=== PATIENT | male | born 1995 | race Caucasian/White ===

== ENCOUNTER 2017-05-07 09:51 | Inpatient (IN) | payer MEDICAID ==
[2017-05-07] VITALS (27 sets, daily range): BP systolic 84–115; BP diastolic 41–68; BMI 17.2
[~2017-05-07] VITALS: Ht 177.8 cm; Wt 54.4 kg
[2017-05-07 10:28] LABS: APPEARANCE CLEAR (CLEAR); COLOR STRAW (YELLOW); NITRITE NEGATIVE (NEGATIVE); PROTEIN 1+ mg/dL (NEGATIVE); SPECIFIC GRAVITY 1.015 (1.005-1.020)
[2017-05-07 10:29] LABS: BACTERIA FEW /hpf (NONE SEEN); BILIRUBIN NEGATIVE (NEGATIVE); EPITHELIAL CELLS RARE /hpf (0-5); GLUCOSE 1000 mg/dL (NEGATIVE); GRANULAR CAST 0-5 /lpf (NONE SEEN); KETONE LARGE mg/dL (NEGATIVE); MUCUS <1+ /lpf (NONE SEEN); RED CELLS - URINE RARE /hpf (0-5); UROBILINOGEN NORMAL (NORMAL); WHITE CELLS - URINE RARE /hpf (0-5)
[2017-05-07 10:35] LABS: KETONE - SERUM MODERATE mg/dL (NEGATIVE)
[2017-05-07 10:47] LABS: BASOPHILS 0.6 % (0-2); EOSINOPHILS 0 % (0-7); HEMATOCRIT 34.9 % (42.0-54.0); HEMOGLOBIN 12.7 g/dL (13.5-17.5); IMMATURE GRANULOCYTES 1.1 % (0-5); MCH 32.2 pg (26.0-34.0); MCHC 36.4 g/dL (31.0-37.0); MCV 88.4 fL (80.0-100.0); MEAN PLATELET VOLUME 10.6 fL (7.4-10.4); NEUTROPHILS 78.3 % (40-80); PLATELET COUNT 391 10x3/uL (130-400); RBC 3.95 10x6/uL (4.20-6.10); RDW 15.8 % (11.5-14.5); WBC 12.4 10x3/uL (4.8-10.8)
[2017-05-07 10:55] LABS: UDS - AMPHET NEGATIVE QUAL (NEGATIVE); UDS - BARB NEGATIVE QUAL (NEGATIVE); UDS - BENZO NEGATIVE QUAL (NEGATIVE); UDS - COCAINE NEGATIVE QUAL (NEGATIVE); UDS - OPIATE NEGATIVE QUAL (NEGATIVE); UDS - PCP NEGATIVE QUAL (NEGATIVE); UDS - THC NEGATIVE QUAL (NEGATIVE)
[2017-05-07 11:21] LABS: UREA NITROGEN 17 mg/dL (7-18)
[2017-05-07 11:22] LABS: CALC OSMOLALITY 304 mosm/kg (275-300); SODIUM 139 mmol/L (136-145); eGFR NON AFRICAN AMERICAN > 90 mL/min (90-120)
[2017-05-07 11:23] LABS: CHLORIDE - SERUM 103 mmol/L (98-107); POTASSIUM - SERUM 3.1 mmol/L (3.5-5.1)
[2017-05-07 11:24] LABS: CALCIUM 7.6 mg/dL (8.5-10.1)
[2017-05-07 11:25] LABS: ALT (SGPT) 19 U/L (10-68)
[2017-05-07 11:26] LABS: ALBUMIN 3.4 g/dL (3.4-5.0); ALKALINE PHOSPHATASE 244 U/L (46-116); BILIRUBIN - TOTAL 0.69 mg/dL (0.2-1.3)
[2017-05-07 11:27] LABS: CREATINE KINASE 37 UL (21-232)
[2017-05-07 11:28] LABS: MAGNESIUM - SERUM 2.3 mg/dL (1.8-2.4)
[2017-05-07 11:29] LABS: GLUCOSE 546 mg/dL (74-106)
--- NOTE | 2017-05-07 15:24 | NUR ---
1515 PT IS RECIEVED [facility] ER VIA STRECHER REPORT RECIEVED PT IS LETHARGIC BUT APPROPRIATE IN RESPONSES AND ANSWERS QUESTIONS..THERE IS A PIV IN THE LEFT FOREARM NO REDNESS OR SWELLING THERE IS LR AT 100CC/HR INFUSING WITH INSULIN 100UNITS IN 100CC NS INFUSING AT 5 UNITS /HR... INITIAL BS ON ARRIVAL IS 371... MAURICIO CATH WITH YELLOW URINE AND SR ON MONITOR.. TEMP PER RECTUM IS 88 AND A BEAHR HUGGER IS PLACED ON PT AT THIS TIME.. PT C/O PAIN IN LEFT SIDE AN ACHE THAT UNCHNAGED BY PALPATION..
[2017-05-07 16:44] LABS: KETONE - SERUM LARGE mg/dL (NEGATIVE)
[2017-05-07 16:47] LABS: CALCIUM 7.9 mg/dL (8.5-10.1); CHLORIDE - SERUM 105 mmol/L (98-107); CREATININE - SERUM 1.1 mg/dL (0.6-1.3); SODIUM 137 mmol/L (136-145); UREA NITROGEN 17 mg/dL (7-18); eGFR NON AFRICAN AMERICAN > 90 mL/min (90-120)
[2017-05-07 16:49] LABS: CALC OSMOLALITY 288 mosm/kg (275-300); GLUCOSE 334 mg/dL (74-106)
[2017-05-07 16:59] LABS: CARBON DIOXIDE 3.7 mmol/L (21.0-32.0); POTASSIUM - SERUM 2.3 mmol/L (3.5-5.1)
--- NOTE | 2017-05-07 17:08 | NUR ---
1700 PT LAB DRAWN AND KETONES LARGE DKA INSULIN DRIP CONTINUES AND RATE INCREASED PER DKA MULTIPLIER.. POTASIUM IS 2.3 AND KCL PO ORDERED.. TEMP IS UP TO 92.8 PER RECTUM..
--- NOTE | 2017-05-07 17:13 | NUR ---
1700 FSBS WITH INSULIN ADJUSTMENT PER DKA PROTOCOL PT BP IS 84SYS MAP IS [address] FREEMAN IS BEEPED AT THIS TIME.. 1720 DR FREEMAN HAS NOT RETURNED CALL OFFICE CALLED
--- NOTE | 2017-05-07 17:26 | NUR ---
8466 DR FREEMAN CALLED BACK AND UPDATE IS GIVEN ORDERS RECIEVED..
--- NOTE | 2017-05-07 18:02 | NUR ---
1800 INSULIN TITRATED.. PIV INITIATED IN RIGHT AC WITH 22 GA FOR LEVOPHED INFUSION.. LEVOPHED INITIATED AT 1 MCG TEMP 94.5 PER RECTAL REMAINS WITH THE WARMING BLANKET
--- NOTE | 2017-05-07 19:29 | NUR ---
REPORT RECIEVED, SHIFT ASSESSMENT COMPLETE, PT IS ALET AND ORIENTED, ON RA WITH 98% O2 SAT. LUNGS CLEAR IN ALL LOBES, S1S2, CM-ST, PATENT LEFT HAND/RIGHT A/C PIV....SEE IF FLOW SHEET...ABODMEN IS FLAT WITH ACTIVE BS, PATENT F/C WITH YELLOW UOP, NO EDEMA NOTED, ALL PPP, VSS, CALL LIGHT IN REACH
[2017-05-07 20:25] LABS: KETONE - SERUM NEGATIVE (NEGATIVE)
[2017-05-07 20:27] LABS: ALBUMIN 3.3 g/dL (3.4-5.0); ALKALINE PHOSPHATASE 226 U/L (46-116); CALCIUM 8.8 mg/dL (8.5-10.1); CHLORIDE - SERUM 106 mmol/L (98-107); PROTEIN - SERUM 7.1 g/dL (6.4-8.2); SODIUM 139 mmol/L (136-145); UREA NITROGEN 18 mg/dL (7-18); eGFR NON AFRICAN AMERICAN > 90 mL/min (90-120)
[2017-05-07 20:57] LABS: CALC OSMOLALITY 283 mosm/kg (275-300); GLUCOSE 178 mg/dL (74-106)
[2017-05-07 20:58] LABS: ALT (SGPT) 13 U/L (10-68); CARBON DIOXIDE 5.1 mmol/L (21.0-32.0); POTASSIUM - SERUM 2.2 mmol/L (3.5-5.1)
--- NOTE | 2017-05-07 23:20 | NUR ---
REASSESSMENT COMPLETE, NO CHANGES NOTED, PT UPTO BSC LG FORMED BM AT THIS TIME, NO OTHER NEEDS NOTED, WILL CON'T TO MONITOR
[2017-05-07] MEDS ORDERED: LEVEMIR100 U/M1 SC (23:45)
[2017-05-08] VITALS (20 sets, daily range): BP systolic 94–127; BP diastolic 52–90; Ht 177.8 cm; Wt 54.4 kg
--- NOTE | 2017-05-08 01:00 | NUR ---
PT UP TO BSC, SM BM AT THIS,
--- NOTE | 2017-05-08 03:05 | NUR ---
REASSESSMENT COMPLETE, NO CHANGES NOTED, PT RESTING AT THIS TIME, NO NEEDS NOTED, VSS, CALL LIGHT IN REACH
[2017-05-08 04:40] LABS: BASOPHILS 0.1 % (0-2); EOSINOPHILS 0 % (0-7); HEMOGLOBIN 11.8 g/dL (13.5-17.5); IMMATURE GRANULOCYTES 0.5 % (0-5); LYMPHOCYTES 7.5 % (15-50); MCH 31.9 pg (26.0-34.0); MCHC 38.1 g/dL (31.0-37.0); MEAN PLATELET VOLUME 10.5 fL (7.4-10.4); MONOCYTES 7.3 % (2-11); NEUTROPHILS 84.6 % (40-80)
[2017-05-08 04:57] LABS: MCV 83.8 fL (80.0-100.0); PLATELET COUNT 243 10x3/uL (130-400); WBC 7.9 10x3/uL (4.8-10.8)
[2017-05-08 05:03] LABS: ALBUMIN 3.3 g/dL (3.4-5.0); ALKALINE PHOSPHATASE 212 U/L (46-116); ALT (SGPT) 15 U/L (10-68); CALC OSMOLALITY 275 mosm/kg (275-300); CALCIUM 8.2 mg/dL (8.5-10.1); CHLORIDE - SERUM 104 mmol/L (98-107); CHOL - HDL RATIO 6.2 ratio (2.3-4.9); CHOLESTEROL, TOTAL 237 mg/dL (0-200); GLUCOSE 219 mg/dL (74-106); HDL CHOLESTEROL 38 mg/dL (32-96); PROTEIN - SERUM 6.9 g/dL (6.4-8.2); SODIUM 134 mmol/L (136-145); UREA NITROGEN 15 mg/dL (7-18); eGFR NON AFRICAN AMERICAN > 90 mL/min (90-120)
[2017-05-08 05:07] LABS: MAGNESIUM - SERUM 1.9 mg/dL (1.8-2.4); TRIGLYCERIDE 588 mg/dL (30-200)
[2017-05-08 05:09] LABS: CARBON DIOXIDE 6.6 mmol/L (21.0-32.0); POTASSIUM - SERUM 2.8 mmol/L (3.5-5.1)
[2017-05-08 05:18] LABS: HEMOGLOBIN A1C 12.7 % (4.8-6.0)
--- NOTE | 2017-05-08 07:25 | NUR ---
PT RESTING COMFORTABLY. ALERT AND ORIENDTED. SPEACH IS CLEAR. ON ROOM AIR WITH O2 SAT 98%, AXILLARY TEMP 97.6. ON TELEMETY HR 113 SINUS TACHYCARDIA. RR 21. LUNGS CLEAR THROUG OUT. BS ACTIVE X 4 QUADRANTS. PT REPORTS PAIN 6/10 ON RIGHT UPPER QUADRANT. PIV ON LEFT HAND WITH NS AT 125ML/HR, SODIUM PHOSPHATE AT 62.5ML/HR. KCL RIDERS AT 50ML/HR. PATIENT ABLE TO GET UP TO BEDSIDE COMODE AND USES URINAL. 1700ML OF LIGHT YELLOW URINE NOTED. HEALING WOUND NOTED ON RIGHT BUTTOCKS. PERIPHERAL PULSES ARE PALPABLE. MOUTH IS SLIGHTLY DRY. PT REPORTS WEARING GLASSES BUT IS NOT WEARING THEM AT THIS TIME. HAS POOR DENTITION. COMPLETE ASSESSMENT CHARTED. NO OTHER NEEDS AT THIS TIME.
--- NOTE | 2017-05-08 09:35 | NUR ---
PT RESTING COMFORTABLY. AM MEDS GIVEN. ICE WATER PROVIDED. KCL RIDERS INFUSING. NO OTHER NEEDS AT THIS TIME.
--- NOTE | 2017-05-08 11:10 | NUR ---
REASSESSMENT COMPLETED. PT DENIES NEEDS AT THIS TIME.
--- NOTE | 2017-05-08 12:25 | NUR ---
FATHER IN ROOM WITH PATIENT. LUNCH TRAY IN ROOM. NO OTHER NEEDS AT THIS TIME.
--- NOTE | 2017-05-08 12:46 | NUR ---
PT APPEARS TO BE OUT OF BREATH. O2 SAT 97% ON ROOM AIR. HR IS 118 SINUS TACHYCARDIA. PT DENIES DIZZINESS OR SOB. ATE SOME OF LUNCH. TRAY LEFT IN ROOM SO PT COULD EAT A LITTLE MORE IF HE WANTED TOO. WILL CONTINUE TO MONITOR. BLOOD GLUCOSE WAS 260 AND WAS TREATED WITH 16 UNITS OF HUMALOG PER SLIDDING SCALE.
--- NOTE | 2017-05-08 14:26 | NUR ---
* Is the patient Alert and Oriented? Yes 0 * PCP Dr. Osorio 0 * Pharmacy [facility] [address] * Preadmission Environment Home with Family 0 * ADLs Independent 0 * Equipment Glucometer 0 * List name and contact numbers for known caregivers / representatives who currently or will assist patient after discharge: Father - Tyrone Spear [phone] 0 * Additional services required to return to the preadmission environment? No 0 * Can the patient safely return to the preadmission environment? Yes 0 * Has this patient been hospitalized within the prior 30 days at any hospital? Yes Patient Name: TYRONE SPEAR Admission Status: ER Accout number: [id number] Admission Date: 05-07-2017 : 1995 Admission Diagnosis: Attending: RASHAUN FREEMAN Current LOS: 1 Planned Disposition: Home Primary [facility] [employer] [facility] Discharge Planning Comments: CM met with patient to assess dc plans/needs. Patient states he lives at home with his father, Tyrone. 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 He states he has a working glucometer and necessary testing supplies. He states he ran out of his diabetic medications, which resulted hospitalization - he states he just didn't pickling tank operator the medication at the pharmacy. At dc, he plans to return home with his father. He states his father will pickling tank operator his medications at the pharmacy when he is discharged. CM will follow. Press Operator Automatic: Josey Fischer
--- NOTE | 2017-05-08 14:54 | NUR ---
PT HR REACHED 133. PT WAS ON USING URINAL AT THE TIME. ONCE HE WAS BACK IN BED HR DECREASED TO 125. WILL CONTINUE TO MONITOR.
--- NOTE | 2017-05-08 16:14 | NUR ---
BLOOD GLUCOSE 336. 20 UNITS OF HUMALOG LISPRO GIVEN PER SLIDING SCALE. HR 125 TACHYCARDIC. PT RESTING ON HIS RIGHT SIDE. HR INCREASED TO 150S WHEN STANDS UP TO USE URINAL. SLOWLY DECREASED BACK TO 125 WHEN HE GETS BACK IN BED. WILL CONTINUE TO MONITOR.
--- NOTE | 2017-05-08 18:30 | NUR ---
LEFT HAND PIV INFILTRATED. FLUIDS PAUSED AT THIS TIME. LEFT ARM IS SWOLLEN AND TIGHT. WILL RE-SITE IV AND CONTINUE WITH FLUID MANAGEMENT.
--- NOTE | 2017-05-08 19:01 | NUR ---
PT WILL BE TRANSFERRED TO ROOM 2217. REPORT CALLED.
--- NOTE | 2017-05-08 19:35 | NUR ---
REC'D TO ROOM 2217 PER BED FROM ICU DEPT A 21 Y/O W/M PER SERVICES DR. FREEMAN WITH ALTERED MENTAL STATUS AND DKA. ALERT/ORIENTED X3 CASTILLO. IV PATENT RT ARM OF NS AT 125CC'S/HR SITE CLEAR. PT HAS A SCAB TO RT BUTTOCK NO DRAINAGE NOTED. K+ RIDER INFUSING WITH 20CC'S LEFT TO COUNT.
--- NOTE | 2017-05-08 20:21 | NUR ---
PZSJ=164. HUMALOG INSULIN 12 UNITS GIVEN SUBC PER S/S.
[2017-05-09] VITALS: BP 117/73
--- NOTE | 2017-05-09 00:04 | NUR ---
KYAM=759. HUMALOG INSULIN 12 UNITS GIVEN PER S/S. UP TO BR VOIDS WELL. PATIENT HAS HAD ADA SNACK OF CLEMENCIA CRACKERS AND MILK..
--- NOTE | 2017-05-09 01:51 | NUR ---
EYES CLOSED RESPIRATIONS WITH EASE AND UNLABORED.
[2017-05-09 04:00] VITALS: BP 95/55
[2017-05-09 06:19] LABS: BASOPHILS 0.2 % (0-2); EOSINOPHILS 0 % (0-7); HEMATOCRIT 25.2 % (42.0-54.0); HEMOGLOBIN 9.7 g/dL (13.5-17.5); IMMATURE GRANULOCYTES 0.2 % (0-5); LYMPHOCYTES 33.1 % (15-50); MCH 31.7 pg (26.0-34.0); MCHC 38.5 g/dL (31.0-37.0); MCV 82.4 fL (80.0-100.0); MEAN PLATELET VOLUME 9.9 fL (7.4-10.4); MONOCYTES 10.2 % (2-11); NEUTROPHILS 56.3 % (40-80); PLATELET COUNT 206 10x3/uL (130-400); RBC 3.06 10x6/uL (4.20-6.10); RDW 16.6 % (11.5-14.5)
[2017-05-09 07:01] LABS: ALBUMIN 2.8 g/dL (3.4-5.0); ALKALINE PHOSPHATASE 158 U/L (46-116); ALT (SGPT) 13 U/L (10-68); CALCIUM 8.3 mg/dL (8.5-10.1); CHLORIDE - SERUM 106 mmol/L (98-107); PROTEIN - SERUM 5.9 g/dL (6.4-8.2); SODIUM 137 mmol/L (136-145)
[2017-05-09 07:07] LABS: CALC OSMOLALITY 275 mosm/kg (275-300); CARBON DIOXIDE 16.7 mmol/L (21.0-32.0); CREATININE - SERUM 0.7 mg/dL (0.6-1.3); GLUCOSE 168 mg/dL (74-106); MAGNESIUM - SERUM 1.4 mg/dL (1.8-2.4); UREA NITROGEN 8 mg/dL (7-18); eGFR NON AFRICAN AMERICAN > 90 mL/min (90-120)
[2017-05-09 07:09] LABS: PHOSPHOROUS 0.9 mg/dL (2.5-4.9); POTASSIUM - SERUM 2.1 mmol/L (3.5-5.1)
[2017-05-09 08:48] VITALS: BP 105/57
[2017-05-09 12:33] VITALS: BP 97/62
[2017-05-09 15:55] VITALS: BP 130/59
--- NOTE | 2017-05-09 16:20 | NUR ---
REMAINS WITHOUT NEEDS.MONITOR
--- NOTE | 2017-05-09 19:11 | NUR ---
REMAINS WIHTOUT NEEDS,WITHOUT CHANGE.CONT PLAN OF CARE
[2017-05-09 20:00] VITALS: BP 90/46
--- NOTE | 2017-05-09 20:00 | NUR ---
ASSESSMENT PER FLOWSHEET. IV PATENT RT ARM OF MVI AT 75CC'S/HR SITE CLEAR. FKGK=363. HUMALOG INSULIN 24 UNITS GIVEN SUBC PER S/S. ALERT/ORIENTED X3 UP AND ABUT IN ROOM
--- NOTE | 2017-05-09 20:30 | NUR ---
RESULTS OF K+LEVEL=2.5 K+ PO 20MEG GIVEN PER PROTOCAL.
--- NOTE | 2017-05-09 21:30 | NUR ---
MEDS GIVEN PER MAR.
--- NOTE | 2017-05-09 22:45 | NUR ---
K+ 20MEQ PO GIVEN PER PROTOCAL.
--- NOTE | 2017-05-10 00:15 | NUR ---
JUDX=958. HUMALOG 8 UNITS GIVEN SUBC PER S/S. THIRD DOSE OF K+ 20MEQ GIVEN PO PER PROTOCAL.
--- NOTE | 2017-05-10 01:15 | NUR ---
RESTING QUIETLY IN BED HAS BEEN UP TO BR VOIDS WELL AND HAD ONE STOOL. PT HUNGRY SANDWICH TRAY SERVED ALONG WITH 2 DIET LEMONLIME DRINKS.
[2017-05-10 04:00] VITALS: BP 94/44
[2017-05-10 05:37] LABS: BASOPHILS 0.3 % (0-2); EOSINOPHILS 1.6 % (0-7); HEMATOCRIT 24.9 % (42.0-54.0); HEMOGLOBIN 9.4 g/dL (13.5-17.5); IMMATURE GRANULOCYTES 0.3 % (0-5); LYMPHOCYTES 36.8 % (15-50); MCHC 37.8 g/dL (31.0-37.0); MEAN PLATELET VOLUME 10.1 fL (7.4-10.4); MONOCYTES 8.1 % (2-11); NEUTROPHILS 52.9 % (40-80); PLATELET COUNT 180 10x3/uL (130-400); RBC 2.94 10x6/uL (4.20-6.10); RDW 16.2 % (11.5-14.5); WBC 3.8 10x3/uL (4.8-10.8)
[2017-05-10 05:45] LABS: MCV 84.7 fL (80.0-100.0)
[2017-05-10 06:00] LABS: CALCIUM 7.8 mg/dL (8.5-10.1); CHLORIDE - SERUM 107 mmol/L (98-107); CREATININE - SERUM 0.7 mg/dL (0.6-1.3); SODIUM 140 mmol/L (136-145); eGFR NON AFRICAN AMERICAN > 90 mL/min (90-120)
[2017-05-10 06:01] LABS: CALC OSMOLALITY 286 mosm/kg (275-300); GLUCOSE 266 mg/dL (74-106); MAGNESIUM - SERUM 2.3 mg/dL (1.8-2.4); PHOSPHOROUS 1.1 mg/dL (2.5-4.9); UREA NITROGEN 11 mg/dL (7-18)
[2017-05-10 07:45] LABS: % SATURATION 46 % (15-55); IRON 99 ug/dl (35-150); TOTAL IRON BIND CAPACITY 215 ug/dl (260-445); UNSAT IRON BIND CAPACITY 116 ug/dl (150-375)
[2017-05-10 08:08] VITALS: BP 99/64
[2017-05-10 12:26] VITALS: BP 103/64
--- NOTE | 2017-05-10 14:23 | NUR ---
NUTRITION F/U CHART REVIEWED. ADA DIET WITH 100% INTAKE LUNCH. WILL CONTINUE TO PROVIDE DIET, MONITOR PO INTAKE. RD FOLLOWING
[2017-05-10 15:49] VITALS: BP 103/68
[2017-05-10 18:55] LABS: MAGNESIUM - SERUM 1.8 mg/dL (1.8-2.4)
[2017-05-10 18:56] LABS: PHOSPHOROUS 2.8 mg/dL (2.5-4.9)
[2017-05-10 19:30] VITALS: BP 85/44
[2017-05-10 23:30] VITALS: BP 84/47
--- NOTE | 2017-05-11 00:18 | NUR ---
STOOL COLLECTED FOR ORDERED STUDIES AND DELIVERED TO LAB.
[2017-05-11 03:30] VITALS: BP 80/45
[2017-05-11 05:07] LABS: BASOPHILS 0.2 % (0-2); EOSINOPHILS 3.5 % (0-7); HEMATOCRIT 24.5 % (42.0-54.0); IMMATURE GRANULOCYTES 0.4 % (0-5); LYMPHOCYTES 35.1 % (15-50); MCH 32.5 pg (26.0-34.0); MCHC 36.7 g/dL (31.0-37.0); MEAN PLATELET VOLUME 10.5 fL (7.4-10.4); MONOCYTES 12.2 % (2-11); NEUTROPHILS 48.6 % (40-80); PLATELET COUNT 191 10x3/uL (130-400); RBC 2.77 10x6/uL (4.20-6.10); RDW 16.9 % (11.5-14.5)
[2017-05-11 05:22] LABS: MCV 88.4 fL (80.0-100.0); WBC 4.8 10x3/uL (4.8-10.8)
[2017-05-11 05:38] LABS: CALCIUM 8.6 mg/dL (8.5-10.1); CARBON DIOXIDE 29.3 mmol/L (21.0-32.0); CHLORIDE - SERUM 106 mmol/L (98-107); CREATININE - SERUM 0.7 mg/dL (0.6-1.3); PHOSPHOROUS 2.5 mg/dL (2.5-4.9); POTASSIUM - SERUM 4.1 mmol/L (3.5-5.1); SODIUM 141 mmol/L (136-145); eGFR NON AFRICAN AMERICAN > 90 mL/min (90-120)
[2017-05-11 05:39] LABS: CALC OSMOLALITY 287 mosm/kg (275-300); GLUCOSE 194 mg/dL (74-106); UREA NITROGEN 18 mg/dL (7-18)
--- NOTE | 2017-05-11 07:00 | NUR ---
REPORT RECIEVED ASSUMED CARE. PATIENT IN BED WITH IV INTACT. NO COMPLAINTS AT THIS TIME. CALL LIGHT WITHIN REACH.
[2017-05-11 07:47] VITALS: BP 103/70
--- NOTE | 2017-05-11 12:00 | NUR ---
PATIENT LAYING IN BED WITH EYES OPEN. NO COMPLAINTS. I VINTACT. CALL LIGHT WITHIN REACH.
[2017-05-11 12:15] VITALS: BP 117/80
[2017-05-11] MEDS ORDERED: FERROUS SULFAT325 MG PO (15:13)
[2017-05-11] MEDS ORDERED: LIPITOR20 MG PO (15:14)
[2017-05-11] MEDS ORDERED: GABAPENTIN100 MG PO (15:14)
[2017-05-11] MEDS ORDERED: PROTONIX40 MG PO (15:15)
[2017-05-11] MEDS ORDERED: LEVEMIR100 U/M1 SC ×2 (15:16)
[2017-05-11] MEDS ORDERED: HUMALOG 30100 UNITS/ SC (15:17)
[2017-05-11 15:35] VITALS: BP 99/62
--- NOTE | 2017-05-11 16:40 | NUR ---
PATIENT IN BED WITH IV INTACT. RECIEVED DC INSTRUCTIONS. VERBALIZED UNDERSTANDING. IV REMOVED, CALL LIGHT WITHIN REACH.
--- NOTE | 2017-05-11 18:58 | NUR ---
PATIENT ESCORTED OUT OF BUILDING THROUGH ER AT THIS TIME WITH PERSONAL BELONGINGS TO PRIVATE VEHICLE.
== END 2017-05-11 19:02 | disposition home or self-care (01) | DRG 638 ==
LOC: D.ER 09:51 → D.ICU 13:45 → D.MS 13:45
PROVIDERS: Emergency Medicine; ADMIT Family Medicine
PROC: 0T9B70Z Drainage of Bladder with Drainage Device, Via Natural or Artificial Opening (ICD-10-PCS; principal; 2017-05-07)
DX: E10.10 Type 1 diabetes mellitus with ketoacidosis without coma (principal); E72.4 Disorders of ornithine metabolism; Z79.4 Long term (current) use of insulin; E87.6 Hypokalemia; I95.9 Hypotension, unspecified; R68.0 Hypothermia, not associated with low environmental temperature; K21.9 Gastro-esophageal reflux disease without esophagitis; E78.1 Pure hyperglyceridemia; E83.39 Other disorders of phosphorus metabolism; F17.200 Nicotine dependence, unspecified, uncomplicated; E10.40 Type 1 diabetes mellitus with diabetic neuropathy, unspecified

== ENCOUNTER 2017-09-18 01:23 | Inpatient (IN) | payer MEDICAID ==
[2017-09-18] VITALS (21 sets, daily range): BP systolic 98–137; BP diastolic 62–96; BMI 19.7
[~2017-09-18] VITALS: Ht 177.8 cm; Wt 62.5 kg
[~2017-09-18 01:23] MED LIST: FERROUS SULFAT325 MG PO; GABAPENTIN100 MG PO; HUMALOG 30100 UNITS/ SC; LEVEMIR100 U/M1 SC; LIPITOR20 MG PO; PROTONIX40 MG PO
[2017-09-18 02:04] LABS: KETONE - SERUM LARGE mg/dL (NEGATIVE)
[2017-09-18 02:09] LABS: BASOPHILS 0.4 % (0-2); EOSINOPHILS 0.1 % (0-7); HEMATOCRIT 42.7 % (42.0-54.0); HEMOGLOBIN 15.3 g/dL (13.5-17.5); IMMATURE GRANULOCYTES 0.6 % (0-5); LYMPHOCYTES 8.6 % (15-50); MCH 33.4 pg (26.0-34.0); MCHC 35.8 g/dL (31.0-37.0); MCV 93.2 fL (80.0-100.0); MEAN PLATELET VOLUME 10.5 fL (7.4-10.4); MONOCYTES 7.2 % (2-11); NEUTROPHILS 83.1 % (40-80); RBC 4.58 10x6/uL (4.20-6.10); RDW 14.3 % (11.5-14.5); WBC 9.8 10x3/uL (4.8-10.8)
[2017-09-18 02:10] LABS: PLATELET COUNT 261 10x3/uL (130-400)
[2017-09-18 02:12] LABS: ALBUMIN 3.6 g/dL (3.4-5.0); ALKALINE PHOSPHATASE 121 U/L (46-116); ALT (SGPT) 19 U/L (10-68); CALC OSMOLALITY 280 mosm/kg (275-300); CALCIUM 8.5 mg/dL (8.5-10.1); CARBON DIOXIDE 10.2 mmol/L (21.0-32.0); CHLORIDE - SERUM 103 mmol/L (98-107); CREATININE - SERUM 1.2 mg/dL (0.6-1.3); MAGNESIUM - SERUM 1.7 mg/dL (1.8-2.4); POTASSIUM - SERUM 3.5 mmol/L (3.5-5.1); PROTEIN - SERUM 7.7 g/dL (6.4-8.2); SODIUM 136 mmol/L (136-145); UREA NITROGEN 11 mg/dL (7-18); eGFR NON AFRICAN AMERICAN 83 mL/min (90-120)
[2017-09-18 02:15] LABS: GLUCOSE 284 mg/dL (74-106)
[2017-09-18 08:48] LABS: CALCIUM 7.8 mg/dL (8.5-10.1); CARBON DIOXIDE 10.6 mmol/L (21.0-32.0); CHLORIDE - SERUM 106 mmol/L (98-107); MAGNESIUM - SERUM 1.5 mg/dL (1.8-2.4); POTASSIUM - SERUM 3.4 mmol/L (3.5-5.1); SODIUM 137 mmol/L (136-145); eGFR NON AFRICAN AMERICAN > 90 mL/min (90-120)
[2017-09-18 08:56] LABS: CALC OSMOLALITY 277 mosm/kg (275-300); GLUCOSE 208 mg/dL (74-106); UREA NITROGEN 7 mg/dL (7-18)
[2017-09-18 12:18] LABS: APPEARANCE CLEAR (CLEAR); BILIRUBIN NEGATIVE (NEGATIVE); COLOR STRAW (YELLOW); GLUCOSE 1000 mg/dL (NEGATIVE); KETONE LARGE mg/dL (NEGATIVE); NITRITE NEGATIVE (NEGATIVE); PROTEIN TRACE mg/dL (NEGATIVE); SPECIFIC GRAVITY 1.015 (1.005-1.020); UROBILINOGEN NORMAL (NORMAL)
[2017-09-18 12:20] LABS: BACTERIA FEW /hpf (NONE SEEN); EPITHELIAL CELLS RARE /hpf (0-5); GRANULAR CAST OCC /lpf (NONE SEEN); MUCUS <1+ /lpf (NONE SEEN); RED CELLS - URINE RARE /hpf (0-5); WHITE CELLS - URINE OCC /hpf (0-5)
[2017-09-18 13:06] LABS: CALCIUM 7.9 mg/dL (8.5-10.1); CHLORIDE - SERUM 106 mmol/L (98-107); CREATININE - SERUM 0.9 mg/dL (0.6-1.3); MAGNESIUM - SERUM 1.5 mg/dL (1.8-2.4); SODIUM 136 mmol/L (136-145); UREA NITROGEN 6 mg/dL (7-18); eGFR NON AFRICAN AMERICAN > 90 mL/min (90-120)
[2017-09-18 13:12] LABS: CALC OSMOLALITY 270 mosm/kg (275-300); CARBON DIOXIDE 14.5 mmol/L (21.0-32.0); GLUCOSE 115 mg/dL (74-106)
[2017-09-18 13:14] LABS: POTASSIUM - SERUM 2.6 mmol/L (3.5-5.1)
[2017-09-18 17:06] LABS: CALC OSMOLALITY 269 mosm/kg (275-300); CALCIUM 7.8 mg/dL (8.5-10.1); CARBON DIOXIDE 17.3 mmol/L (21.0-32.0); CHLORIDE - SERUM 106 mmol/L (98-107); CREATININE - SERUM 1.1 mg/dL (0.6-1.3); GLUCOSE 94 mg/dL (74-106); MAGNESIUM - SERUM 1.5 mg/dL (1.8-2.4); SODIUM 136 mmol/L (136-145); UREA NITROGEN 6 mg/dL (7-18); eGFR NON AFRICAN AMERICAN > 90 mL/min (90-120)
[2017-09-18 17:10] LABS: POTASSIUM - SERUM 2.7 mmol/L (3.5-5.1)
[2017-09-18 23:28] LABS: APPEARANCE CLEAR (CLEAR); BILIRUBIN NEGATIVE (NEGATIVE); COLOR YELLOW (YELLOW); GLUCOSE 1000 mg/dL (NEGATIVE); KETONE MODERATE mg/dL (NEGATIVE); NITRITE NEGATIVE (NEGATIVE); PROTEIN TRACE mg/dL (NEGATIVE); UROBILINOGEN NORMAL (NORMAL)
[2017-09-18 23:30] LABS: BACTERIA FEW /hpf (NONE SEEN); EPITHELIAL CELLS 0-5 /hpf (0-5); RED CELLS - URINE 0-5 /hpf (0-5); WHITE CELLS - URINE 0-5 /hpf (0-5)
[2017-09-19] VITALS (14 sets, daily range): BP systolic 86–104; BP diastolic 41–72; Ht 177.8 cm; Wt 62.5 kg
[2017-09-19 04:30] LABS: BASOPHILS 0.3 % (0-2); EOSINOPHILS 4.5 % (0-7); IMMATURE GRANULOCYTES 0.3 % (0-5); LYMPHOCYTES 31.7 % (15-50); MCH 33.2 pg (26.0-34.0); MCHC 35.9 g/dL (31.0-37.0); MCV 92.6 fL (80.0-100.0); MEAN PLATELET VOLUME 10.2 fL (7.4-10.4); MONOCYTES 9.2 % (2-11); RDW 14.6 % (11.5-14.5)
[2017-09-19 04:34] LABS: HEMATOCRIT 32.6 % (42.0-54.0); HEMOGLOBIN 11.7 g/dL (13.5-17.5); PLATELET COUNT 140 10x3/uL (130-400); RBC 3.52 10x6/uL (4.20-6.10); WBC 3.8 10x3/uL (4.8-10.8)
[2017-09-19 04:48] LABS: ALKALINE PHOSPHATASE 74 U/L (46-116); BILIRUBIN - TOTAL 0.26 mg/dL (0.2-1.3); CALCIUM 7.9 mg/dL (8.5-10.1); CHLORIDE - SERUM 106 mmol/L (98-107); SODIUM 139 mmol/L (136-145); UREA NITROGEN 6 mg/dL (7-18)
[2017-09-19 04:49] LABS: ALBUMIN 2.3 g/dL (3.4-5.0); ALT (SGPT) 14 U/L (10-68); CALC OSMOLALITY 278 mosm/kg (275-300); CARBON DIOXIDE 23.6 mmol/L (21.0-32.0); CREATININE - SERUM 0.7 mg/dL (0.6-1.3); GLUCOSE 160 mg/dL (74-106); POTASSIUM - SERUM 2.7 mmol/L (3.5-5.1); PROTEIN - SERUM 5.3 g/dL (6.4-8.2); eGFR NON AFRICAN AMERICAN > 90 mL/min (90-120)
[2017-09-20 00:58] VITALS: BP 112/54
[2017-09-20 04:55] VITALS: BP 105/66
[2017-09-20 06:14] LABS: CALCIUM 8.4 mg/dL (8.5-10.1); CARBON DIOXIDE 25.3 mmol/L (21.0-32.0); CHLORIDE - SERUM 100 mmol/L (98-107); CREATININE - SERUM 0.7 mg/dL (0.6-1.3); POTASSIUM - SERUM 3.6 mmol/L (3.5-5.1); SODIUM 137 mmol/L (136-145); eGFR NON AFRICAN AMERICAN > 90 mL/min (90-120)
[2017-09-20 06:25] LABS: CALC OSMOLALITY 288 mosm/kg (275-300); GLUCOSE 359 mg/dL (74-106); UREA NITROGEN 16 mg/dL (7-18)
[2017-09-20 08:02] VITALS: BP 100/60
[2017-09-20 13:24] VITALS: BP 94/59
[2017-09-20] MEDS ORDERED: LEVEMIR100 U/M1 SC (16:09)
[2017-09-20] MEDS ORDERED: HUMALOG 30100 UNITS/ SC (16:10)
[2017-09-20 16:37] VITALS: BP 94/64
[2017-09-23 14:44] LABS: IGG SUBCLASS 1 271 mg/dL (325-846); IGG SUBCLASS 2 133 mg/dL (133-509); IGG SUBCLASS 3 20 mg/dL (19-109); IGG SUBCLASS 4 97 mg/dL (3-104)
== END 2017-09-20 19:04 | disposition home or self-care (01) | DRG 438 ==
LOC: D.ER 01:23 → D.MS 02:52 → D.ICU 02:52 → D.MS 09-19 17:20
PROVIDERS: Family Medicine; Internal Medicine Gastroenterology; Internal Medicine Nephrology
DX: K85.90 Acute pancreatitis without necrosis or infection, unspecified (principal); E10.10 Type 1 diabetes mellitus with ketoacidosis without coma; Z79.4 Long term (current) use of insulin; Z72.0 Tobacco use

== ENCOUNTER 2019-08-04 16:01 | Emergency (ER) | payer OTHER ==
[~2019-08-04] VITALS: Ht 177.8 cm; Wt 72.7 kg
[2019-08-04 16:20] VITALS: Ht 177.8 cm; Wt 72.7 kg
[2019-08-04 16:42] LABS: BASOPHILS 0.5 % (0-2); HEMATOCRIT 44.4 % (42.0-54.0); HEMOGLOBIN 16.2 g/dL (13.5-17.5); IMMATURE GRANULOCYTES 0.2 % (0-5); LYMPHOCYTES 25.1 % (15-50); MCH 31.3 pg (26.0-34.0); MCHC 36.5 g/dL (31.0-37.0); MCV 85.9 fL (80.0-100.0); MEAN PLATELET VOLUME 10.5 fL (7.4-10.4); MONOCYTES 5.2 % (2-11); RBC 5.17 10x6/uL (4.20-6.10); RDW 12.3 % (11.5-14.5); WBC 5.8 10x3/uL (4.8-10.8)
[2019-08-04 16:50] LABS: PLATELET COUNT 183 10x3/uL (130-400)
[2019-08-04 16:51] LABS: CALC OSMOLALITY 282 mosm/kg (275-300); CALCIUM 9.4 mg/dL (8.5-10.1); CHLORIDE - SERUM 98 mmol/L (98-107); CREATININE - SERUM 0.7 mg/dL (0.6-1.3); POTASSIUM - SERUM 3.9 mmol/L (3.5-5.1); SODIUM 136 mmol/L (136-145); UREA NITROGEN 15 mg/dL (7-18); eGFR NON AFRICAN AMERICAN > 90 mL/min (90-120)
[2019-08-04 16:52] LABS: GLUCOSE 285 mg/dL (74-106)
[2019-08-04 16:57] LABS: ALKALINE PHOSPHATASE 69 U/L (30-120); ALT (SGPT) 22 U/L (10-68); AMYLASE - SERUM 28 U/L (25-115); BILIRUBIN - TOTAL 0.54 mg/dL (0.2-1.3); LIPASE 78 U/L (73-393); PROTEIN - SERUM 7.4 g/dL (6.4-8.2)
[2019-08-04 19:21] LABS: BILIRUBIN NEGATIVE (NEGATIVE); GLUCOSE 100 mg/dL (NEGATIVE); KETONE MODERATE mg/dL (NEGATIVE); NITRITE NEGATIVE (NEGATIVE); UROBILINOGEN NORMAL (NORMAL)
[2019-08-04 21:40] VITALS: BP 125/82
== END 2019-08-04 22:37 | disposition home or self-care (01) ==
LOC: D.ER 16:01
PROVIDERS: Family Medicine
DX: E10.65 Type 1 diabetes mellitus with hyperglycemia (principal); E10.40 Type 1 diabetes mellitus with diabetic neuropathy, unspecified; E86.0 Dehydration; Z79.4 Long term (current) use of insulin; H53.9 Unspecified visual disturbance; M54.5 Low back pain; R42 Dizziness and giddiness

== ENCOUNTER 2019-09-19 19:22 | Inpatient (IN) | payer OTHER ==
[~2019-09-19] VITALS: Ht 177.8 cm; Wt 69.1 kg
[2019-09-19 20:02] LABS: BASOPHILS 0.4 % (0-2); EOSINOPHILS 0.3 % (0-7); HEMATOCRIT 46.2 % (42.0-54.0); HEMOGLOBIN 15.9 g/dL (13.5-17.5); IMMATURE GRANULOCYTES 0.4 % (0-5); LYMPHOCYTES 22.5 % (15-50); MCH 31.4 pg (26.0-34.0); MCHC 34.4 g/dL (31.0-37.0); MCV 91.1 fL (80.0-100.0); MEAN PLATELET VOLUME 10.7 fL (7.4-10.4); MONOCYTES 4.7 % (2-11); NEUTROPHILS 71.7 % (40-80); PLATELET COUNT 173 10x3/uL (130-400); RBC 5.07 10x6/uL (4.20-6.10)
[2019-09-19 20:19] LABS: ALBUMIN 4.1 g/dL (3.4-5.0); ALKALINE PHOSPHATASE 79 U/L (30-120); ALT (SGPT) 22 U/L (10-68); BILIRUBIN - TOTAL 0.94 mg/dL (0.2-1.3); CALC OSMOLALITY 277 mosm/kg (275-300); CALCIUM 8.7 mg/dL (8.5-10.1); CARBON DIOXIDE 14.9 mmol/L (21.0-32.0); CHLORIDE - SERUM 93 mmol/L (98-107); CREATININE - SERUM 1.1 mg/dL (0.6-1.3); LIPASE 88 U/L (73-393); MAGNESIUM - SERUM 1.9 mg/dL (1.8-2.4); PHOSPHOROUS 3.5 mg/dL (2.5-4.9); POTASSIUM - SERUM 4.5 mmol/L (3.5-5.1); PROTEIN - SERUM 7.8 g/dL (6.4-8.2); SODIUM 128 mmol/L (136-145); UREA NITROGEN 20 mg/dL (7-18); eGFR NON AFRICAN AMERICAN 90 mL/min (90-120)
[2019-09-19 20:23] LABS: GLUCOSE 427 mg/dL (74-106)
--- NOTE | 2019-09-19 20:43 | NUR ---
1ST LR BOLUS COMPLETE SEE EMAR
[2019-09-19 21:06] LABS: BILIRUBIN NEGATIVE (NEGATIVE); GLUCOSE 1000 mg/dL (NEGATIVE); KETONE LARGE mg/dL (NEGATIVE); NITRITE NEGATIVE (NEGATIVE); UROBILINOGEN NORMAL (NORMAL)
[2019-09-19 21:37] VITALS: BP 116/77
--- NOTE | 2019-09-19 21:37 | NUR ---
RECEIVED PT FROM ER VIA STRETCHER TO ICU PLACED ON MONITOR READING SR WITHOUT ECTOPY ALARMS ON AND AUDIBLE. ON ROOM AIR O2 SAT 100%. ALERT AND ORIENTED DENIES PAIN. PT HAS LEFT FOREARM IV WITH INSULIN GTT LR WAS INFUSING COMPLETE NS STARTED PER ORDERS. BED LOW POSITION SIDE RAILS UP X 3 FOR BED MOBILITY AND SAFETY CL IN REACH WILL MONITOR
[2019-09-19] MEDS ORDERED: LEVEMIR IN100 UNITS/ SC (21:52)
[2019-09-19 22:00] VITALS: BP 116/81
[2019-09-19 22:10] VITALS: BP 116/77; BMI 21.8
[2019-09-19 23:00] VITALS: BP 106/62
--- NOTE | 2019-09-19 23:30 | NUR ---
DWORKIN ON UNIT NEW ORDERS NOTED
[2019-09-20] VITALS (20 sets, daily range): BP systolic 84–123; BP diastolic 55–83; Ht 177.8 cm; Wt 69.1 kg
[2019-09-20 00:51] LABS: CALC OSMOLALITY 272 mosm/kg (275-300); CALCIUM 7.9 mg/dL (8.5-10.1); CHLORIDE - SERUM 101 mmol/L (98-107); CREATININE - SERUM 0.9 mg/dL (0.6-1.3); GLUCOSE 105 mg/dL (74-106); MAGNESIUM - SERUM 1.8 mg/dL (1.8-2.4); POTASSIUM - SERUM 3.2 mmol/L (3.5-5.1); SODIUM 136 mmol/L (136-145); UREA NITROGEN 15 mg/dL (7-18); eGFR NON AFRICAN AMERICAN > 90 mL/min (90-120)
--- NOTE | 2019-09-20 01:00 | NUR ---
PT RESTING QUIETLY WITH EYES CLOSED VSS CPOC INSULIN GTT CONTINUES
[2019-09-20 03:52] LABS: BASOPHILS 0.3 % (0-2); EOSINOPHILS 1.9 % (0-7); HEMATOCRIT 41.6 % (42.0-54.0); HEMOGLOBIN 14.4 g/dL (13.5-17.5); IMMATURE GRANULOCYTES 0.5 % (0-5); LYMPHOCYTES 38.3 % (15-50); MCHC 34.6 g/dL (31.0-37.0); MCV 89.7 fL (80.0-100.0); MEAN PLATELET VOLUME 11.2 fL (7.4-10.4); PLATELET COUNT 153 10x3/uL (130-400); RBC 4.64 10x6/uL (4.20-6.10); RDW 12.9 % (11.5-14.5); WBC 6.4 10x3/uL (4.8-10.8)
[2019-09-20 03:58] LABS: CALC OSMOLALITY 274 mosm/kg (275-300); CARBON DIOXIDE 24.3 mmol/L (21.0-32.0); CHLORIDE - SERUM 104 mmol/L (98-107); CREATININE - SERUM 0.7 mg/dL (0.6-1.3); GLUCOSE 121 mg/dL (74-106); MAGNESIUM - SERUM 1.9 mg/dL (1.8-2.4); POTASSIUM - SERUM 3.1 mmol/L (3.5-5.1); SODIUM 137 mmol/L (136-145); UREA NITROGEN 13 mg/dL (7-18); eGFR NON AFRICAN AMERICAN > 90 mL/min (90-120)
--- NOTE | 2019-09-20 04:00 | NUR ---
REQUESTED D5NS WITH 20 KCL FROM [facility] FROM [facility]. NOT AVAILABLE DAKOTA COOK SUP GOING TO GET FROM ANOTHER UNIT
--- NOTE | 2019-09-20 06:47 | NUR ---
ACCUCHECK 107. SEE INSULIN PROTOCOL PAPER FLOWSHEET FOR CHANGES. PT ON D51/2NS PER DR EMERSON ORDER.
--- NOTE | 2019-09-20 06:55 | NUR ---
AWAITING PHARMACY TO VERIFY AND PLACE ORDERS FOR MEDS TO GET FROM [facility]. PT HAS PROTONIX AND ELECTROLYTE PROTOCOL.
--- NOTE | 2019-09-20 07:20 | NUR ---
PT RESTING QUIETLY, VSS.
[2019-09-20 12:35] LABS: CALC OSMOLALITY 273 mosm/kg (275-300); CALCIUM 8.1 mg/dL (8.5-10.1); CARBON DIOXIDE 23.3 mmol/L (21.0-32.0); CHLORIDE - SERUM 105 mmol/L (98-107); GLUCOSE 141 mg/dL (74-106); MAGNESIUM - SERUM 1.9 mg/dL (1.8-2.4); SODIUM 136 mmol/L (136-145); UREA NITROGEN 13 mg/dL (7-18)
[2019-09-20 12:36] LABS: CREATININE - SERUM 0.5 mg/dL (0.6-1.3); POTASSIUM - SERUM 4.9 mmol/L (3.5-5.1); eGFR NON AFRICAN AMERICAN > 90 mL/min (90-120)
--- NOTE | 2019-09-20 12:55 | NUR ---
DR EMERSON HERE ON ROUNDS. PT RESTING QUIETLY.
[2019-09-20 13:26] LABS: UDS - AMPHET NEGATIVE QUAL (NEGATIVE); UDS - BARB NEGATIVE QUAL (NEGATIVE); UDS - BENZO NEGATIVE QUAL (NEGATIVE); UDS - COCAINE NEGATIVE QUAL (NEGATIVE); UDS - OPIATE NEGATIVE QUAL (NEGATIVE); UDS - PCP NEGATIVE QUAL (NEGATIVE); UDS - THC NEGATIVE QUAL (NEGATIVE)
--- NOTE | 2019-09-20 19:00 | NUR ---
REPORT RECEIVED PT HAS ROOM 211 ATTEMPTED TO CALL REPORT NO ANSWER WILL ATTEMPT AFTER SHIFT CHANGE. PT ALERT AND ORIENTED DENIES NEEDS AT THIS TIME CPOC.
--- NOTE | 2019-09-20 19:46 | NUR ---
REPORT CALLED TO YAS NURSE ON FLOOR
--- NOTE | 2019-09-20 20:15 | NUR ---
TRANSFERRED PT TO 2110 VIA W/C PTS NURSE YAS AT BEDSIDE. BED LOW POSITION CL IN REACH
--- NOTE | 2019-09-20 20:20 | NUR ---
PT TO ROOM 2111 VIA WHEELCHAIR ACCOMPANIED BY HOSPITAL STAFF. AMBULATED TO BED WITHOUT ASSISTANCE. DENIES ANY NEEDS AT THIS TIME. BED IN LOWEST POSITION, SR X1, CALL LIGHT WITHIN REACH. WILL CONTINUE TO MONITOR.
[2019-09-21] VITALS: BP 104/68
[2019-09-21 04:00] VITALS: BP 105/71
[2019-09-21 04:35] LABS: BASOPHILS 0.5 % (0-2); EOSINOPHILS 1.6 % (0-7); HEMATOCRIT 42.4 % (42.0-54.0); HEMOGLOBIN 14.1 g/dL (13.5-17.5); IMMATURE GRANULOCYTES 0.2 % (0-5); LYMPHOCYTES 40.4 % (15-50); MCH 30.3 pg (26.0-34.0); MCHC 33.3 g/dL (31.0-37.0); MEAN PLATELET VOLUME 10.7 fL (7.4-10.4); MONOCYTES 5.7 % (2-11); NEUTROPHILS 51.6 % (40-80); PLATELET COUNT 153 10x3/uL (130-400); RBC 4.66 10x6/uL (4.20-6.10); RDW 13.2 % (11.5-14.5); WBC 5.6 10x3/uL (4.8-10.8)
[2019-09-21 04:54] LABS: CALCIUM 8.3 mg/dL (8.5-10.1); CARBON DIOXIDE 25.4 mmol/L (21.0-32.0); CHLORIDE - SERUM 102 mmol/L (98-107); SODIUM 136 mmol/L (136-145); UREA NITROGEN 11 mg/dL (7-18)
[2019-09-21 04:58] LABS: CALC OSMOLALITY 277 mosm/kg (275-300); CREATININE - SERUM 0.7 mg/dL (0.6-1.3); GLUCOSE 228 mg/dL (74-106); POTASSIUM - SERUM 3.5 mmol/L (3.5-5.1); eGFR NON AFRICAN AMERICAN > 90 mL/min (90-120)
[2019-09-21 10:14] VITALS: BP 98/60
--- NOTE | 2019-09-21 11:47 | MORECARE ---
CASE MANAGEMENT DISCHARGE SUMMARY PATIENT: ROBERTO SPEAR UNIT: [id number] ADM DATE: 09/19/19 AGE: 23 : [birth year] SEX: M ROOM/BED: D.2111 AUTHOR: SONIA,DOC PHYSICIAN: REFERRING PHYSICIAN: KASEY EMERSON MD DATE OF SERVICE: 09/21/19 Discharge Plan Patient Name: ROBERTO SPEAR Facility: [facility]:[place] : 1995 Planned Disposition: Home Anticipated Discharge Date: 09/21/19 Discharge Date: Expected LOS: 2 Initial Reviewer: [email or web address] Initial Review Date: 09/21/2019 Generated: 09/21/19 12:46 pm Comments DCP- Discharge Planning Updated by [email or web address]: Kim Arteaga on 09/21/19 10:[address] Patient Name: ROBERTO SPEAR Admission Status: ER Accout number: [id number] Admission Date: 09-19-2019 : 1995 Admission Diagnosis: Attending: KASEY EMERSON Current LOS: 2 Anticipated DC Date: 09-21-2019 Planned Disposition: Home Primary Insurance: [employer] MANAGED MEDICAID Discharge Planning Comments: CM met with patient to complete initial dc planning assessment. CM educated patient on the CM role and verbal consent given by patient to complete assessment. Patient lives at home with his finya?e, son and his father. At discharge patient plans to return and feels this is a safe discharge. CM discussed availability of home health, rehab services, and medical equipment. Patient denied known discharge needs at this time. Patient states he checks his blood sugar every am, with each meal and prn. States he does not need further education on his diabetes. He does not have a PCP. I gave him the physician referral number. CM will continue to follow and will assist as needed with dc plans/needs. Lubrication Supervisor: Kim Arteaga DCPIA - Discharge Planning Initial Assessment Updated by [email or web address]: Kim Arteaga on 09/21/19 11:43 am * Is the patient Alert and Oriented? Yes * How many steps to enter\exit or inside your home? 6/0 * PCP None * Pharmacy [facility] on [address] * Preadmission Environment Home with Family * ADLs Independent * Equipment Glucometer * List name and contact numbers for known caregivers / representatives who currently or will assist patient after discharge: Natalya Delacruzdonnell [place] aleydanya?e - [phone] * Verbal permission to speak to the caregivers and representatives has been obtained from the patient. Yes * Community resources currently utilized None * Additional services required to return to the preadmission environment? No * Can the patient safely return to the preadmission environment? Yes * Has this patient been hospitalized within the prior 30 days at any hospital? No Patient Name: ROBERTO SPEAR Page [id number] at 1147 All edits/amendments must be made on the electronic document DICTATION DATE: 09/21/19 1146 WEED CUTTER: SONIA 09/21/19 1146 RPT#: [id number] DC DATE: STATUS: ADM IN [facility] [address] [place] [address] END OF REPORT
--- NOTE | 2019-09-21 11:56 | NUR ---
PROVIDED VERBAL AND WRITTEN DISCHARGE TEACHING TO PT, WHO VERBALIZED UNDERSTANDING REGARDING TEACHING. D/C LT FA IV WITH CATHETER TIP INTACT. BLOOD SUGAR OF 267, 4UNITS GIVE PER S/S. PT WANTS TO TAKE A SHOWER FIRST AND THEN HE WILL DRIVE HIS SELF HOME. WILL NOTIFY NURSE WHEN READY FOR WHEELCHAIR.
--- NOTE | 2019-09-21 12:42 | NUR ---
PT LEFT UNIT VIA WHEELCHAIR, WITH ALL BELONGINGS. NAD NOTED.
--- NOTE | 2019-09-22 09:14 | MORECARE ---
CASE MANAGEMENT DISCHARGE SUMMARY PATIENT: ROBERTO SPEAR UNIT: [id number] ADM DATE: 09/19/19 AGE: 23 : [birth year] SEX: M ROOM/BED: D.2111 AUTHOR: SONIADOC PHYSICIAN: REFERRING PHYSICIAN: KASEY EMERSON MD DATE OF SERVICE: 09/22/19 Discharge Plan Patient Name: ROBERTO SPEAR Facility: [facility]:[place] : 1995 Planned Disposition: Home Anticipated Discharge Date: 09/21/19 Discharge Date: 09/21/2019 Expected LOS: 2 Initial Reviewer: [email or web address] Initial Review Date: 09/21/2019 Generated: 09/22/19 10:14 am Comments DCP- Discharge Planning Updated by [email or web address]: Kim Arteaga on 09/21/19 10:[address] Patient Name: ROBERTO SPEAR Admission Status: ER Accout number: [id number] Admission Date: 09-19-2019 : 1995 Admission Diagnosis: Attending: KASEY EMERSON Current LOS: 2 Anticipated DC Date: 09-21-2019 Planned Disposition: Home Primary Insurance: [employer] MANAGED MEDICAID Discharge Planning Comments: CM met with patient to complete initial dc planning assessment. CM educated patient on the CM role and verbal consent given by patient to complete assessment. Patient lives at home with his ficorteze, son and his father. At discharge patient plans to return and feels this is a safe discharge. CM discussed availability of home health, rehab services, and medical equipment. Patient denied known discharge needs at this time. Patient states he checks his blood sugar every am, with each meal and prn. States he does not need further education on his diabetes. He does not have a PCP. I gave him the physician referral number. CM will continue to follow and will assist as needed with dc plans/needs. Ocean Freight Agent: Kim Arteaga DCPIA - Discharge Planning Initial Assessment Updated by [email or web address]: Kim Arteaga on 09/21/19 11:43 am * Is the patient Alert and Oriented? Yes * How many steps to enter\exit or inside your home? 6/0 * PCP None * Pharmacy [facility] on [address] * Preadmission Environment Home with Family * ADLs Independent * Equipment Glucometer * List name and contact numbers for known caregivers / representatives who currently or will assist patient after discharge: Natalya richardson?e - [phone] * Verbal permission to speak to the caregivers and representatives has been obtained from the patient. Yes * Community resources currently utilized None * Additional services required to return to the preadmission environment? No * Can the patient safely return to the preadmission environment? Yes * Has this patient been hospitalized within the prior 30 days at any hospital? No Last DP export: 09/21/19 10:47 a Patient Name: ROBERTO SPEAR Page [phone] at 0914 All edits/amendments must be made on the electronic document DICTATION DATE: 09/22/19913 DINKEY DISPATCHER: SONIA 09/22/19913 RPT#: [id number] DC DATE:09/21/19 STATUS: DIS IN [facility] [address] [place] [address] END OF REPORT
== END 2019-09-21 12:42 | disposition home or self-care (01) | DRG 639 ==
LOC: D.ER 19:22 → D.ICU 20:47 → D.M2 20:47
PROVIDERS: Emergency Medicine; ADMIT Internal Medicine Nephrology; ATTEND Internal Medicine Nephrology
DX: E10.10 Type 1 diabetes mellitus with ketoacidosis without coma (principal); Z79.4 Long term (current) use of insulin; E10.40 Type 1 diabetes mellitus with diabetic neuropathy, unspecified; E87.6 Hypokalemia; E78.5 Hyperlipidemia, unspecified; Z87.891 Personal history of nicotine dependence